=== PATIENT | female | born 1990 | race Caucasian/White ===

== ENCOUNTER 2018-12-07 14:37 | Outpatient (CLI) | payer OTHER ==
[2018-12-07] MEDS ORDERED: GADOBUTROL 7.5 MMOL/7.5 ML PFS ONE (16:49)
== END 2018-12-07 23:59 | disposition home or self-care (01) ==
LOC: CFH 14:37 → EDSTATUS 15:00 → CFH 23:59
PROVIDERS: ATTEND Psychiatry & Neurology Neurology
DX: R51 Headache (principal); F07.81 Postconcussional syndrome
CPT/HCPCS: 70553; 76770; A9585

== ENCOUNTER 2020-01-12 14:16 | Emergency (ER) | payer OTHER ==
[~2020-01-12] VITALS: Ht 170.2 cm; Wt 65.5 kg
[2020-01-12] MEDS ORDERED: KETOROLAC 30 MG/1 ML ONE (14:50)
[2020-01-12] MEDS ORDERED: ONDANSETRON 2MG/ML, 2ML ONE (14:50)
[2020-01-12] MEDS ORDERED: FAMOTIDINE 20 MG/2 ML ONE (14:51)
[2020-01-12] MEDS ORDERED: SODIUM CHLORIDE FLUSH 10ML SYR IVF ONE (15:00)
[2020-01-12] MEDS ORDERED: ONDANSETRON 2MG/ML, 2ML IVPush ONE (15:00)
[2020-01-12] MEDS ORDERED: SODIUM CHLORIDE 0.9% 1,000ML IVBOLUS ONE (15:00)
[2020-01-12] MEDS ORDERED: FAMOTIDINE 20 MG/2 ML IVPush ONE (15:00)
[2020-01-12] MEDS ORDERED: KETOROLAC 30 MG/1 ML IVPush ONE (15:00)
--- NOTE | 2020-01-12 15:12 | NUR ---
PT RESTING COMFORTABLY IN BED SINCE BEING MEDICATED PER MAR. DENIES ANY NEEDS AT THIS TIME, CALL LIGHT IN REACH. FLUIDS CONTINUE INFUSING AT THIS TIME.
[2020-01-12 15:52] VITALS: BP 102/56
--- NOTE | 2020-01-12 16:28 | NUR ---
PT PROVIDED WITH COLD SPRITE PER REQUEST. DENIES ANY ONGOING NAUSEA AT THIS TIME. DENIES ANY NEEDS OR CONCERNS, CALL LIGHT IN REACH, ERP AT BEDSIDE.
== END 2020-01-12 17:22 | disposition home or self-care (01) ==
LOC: ED 16:19
DX: R11.2 Nausea with vomiting, unspecified (principal); E86.0 Dehydration; I49.3 Ventricular premature depolarization; R51 Headache
CPT/HCPCS: 93005; 96361; 96374; 96375; 99284; J1885; J2405; J3490; J7030

== ENCOUNTER 2020-06-01 11:14 | Emergency (ER) | payer OTHER ==
[~2020-06-01] VITALS: Ht 170.2 cm; Wt 67.0 kg
[2020-06-01 12:07] LABS: BASOPHILS % (AUTO) 1 % (0-1); EOSINOPHILS % (AUTO) 0 % (1-7); LYMPHOCYTES % (AUTO) 18 % (22-44); MEAN CORPUSCULAR HEMOGLOBIN 30.7 pg (27.0-34.8); MEAN CORPUSCULAR HGB CONC 33.6 g/dL (32.4-35.8); MEAN PLATELET VOLUME 7.9 fL (7.4-10.4); MONOCYTES % (AUTO) 6 % (2-9); NEUTROPHILS % (AUTO) 76 % (42-75); PLATELET COUNT 207 x10^3/uL (130-400); RED BLOOD COUNT 4.43 x10^6/uL (3.82-5.3); RED CELL DISTRIBUTION WIDTH 13.6 % (9.6-15.2)
[2020-06-01 12:11] LABS: MD NO
[2020-06-01 12:18] LABS: ANION GAP 4 mmol/L (5-15); CHLORIDE 103 mmol/L (98-107)
[2020-06-01 12:31] LABS: ALANINE AMINOTRANSFERASE 36 U/L (12-78); ALKALINE PHOSPHATASE 43 U/L (45-117); BILIRUBIN,TOTAL 1.1 mg/dL (0.2-1.0); CREATINE KINASE, TOTAL 1268 U/L (26-192); CREATININE 1.18 mg/dL (0.55-1.02); TOTAL PROTEIN 7.3 g/dL (6.4-8.2)
--- NOTE | 2020-06-01 14:31 | NUR ---
TO ROOM AT THIS TIME.
--- NOTE | 2020-06-01 14:58 | NUR ---
PT C/O LEG PAIN AND CRAMPS. PT LIFTED HEAVY WEIGHTS LAST MONDAY. HAD MUSCLE SORENESS THAT NIGHT. CRAMPING STARTED MONDAY NIGHT AND HAS WORSENED. PAIN 08/12. PAIN WAS INTENSE THIS AM 02/09. THE CRAMPING WOKE THE PT OUT OF SLEEP. PT TESTED POSITIVE FOR COVID 2 WEEKS AGO. NO SYMPTOMS AT THIS TIME.
--- NOTE | 2020-06-01 16:14 | NUR ---
WAITING FOR FURTHER ORDERS. PT RESTING ON ED BED.
[2020-06-01 16:37] VITALS: BP 119/69
--- NOTE | 2020-06-01 16:53 | NUR ---
PT REC'VD DISCHARGE INSTRUCTIONS AND EDUCATION. PT HAD NO FURTHER QUESTIONS. PT AMBULATED TO DISCHARGE DESK, STEADY GAIT.
[2020-06-01 17:20] LABS: MICROSCOPIC NOT IND
== END 2020-06-01 16:58 | disposition home or self-care (01) ==
LOC: ED 16:45
DX: U07.1 COVID-19 (principal); T79.6XXA Traumatic ischemia of muscle, initial encounter; X50.0XXA Overexertion from strenuous movement or load, initial encounter; Y93.89 Activity, other specified; Y92.89 Other specified places as the place of occurrence of the external cause; Y99.8 Other external cause status
CPT/HCPCS: 36415; 80053; 81003; 82550; 83690; 84443; 84703; 85025; 99283